=== PATIENT | male | born 1955 | race Caucasian/White ===

== ENCOUNTER 2016-11-18 10:50 | Emergency (ER) | payer OTHER ==
[2016-11-18 12:30] LABS: BASOPHIL 0.5 % (0-2); EOSINOPHIL 2.7 % (0-5); HCT 43.4 % (42.0-52.0); HGB 14.8 g/dl (13.2-18.0); LYMPHOCYTE 26.2 % (15-48); MCH 30.1 pg (25.0-31.0); MCHC 34.1 g/dL (32.0-36.0); MCV 88.4 fL (78.0-100.0); MONOCYTE 6.8 % (0-12); MPV 10.3 fL (6.0-9.5); NEUTROPHIL 63.8 % (41-80); PLT 278 K/uL (150-400); RBC 4.91 M/uL (4.70-6.00); WBC 6.6 K/uL (4.0-10.5)
[2016-11-18 13:44] LABS: CREATININE 1.2 mg/dL (0.7-1.2); POTASSIUM 4.7 mmol/L (3.5-5.1)
== END 2016-11-18 12:33 | disposition home or self-care (01) ==
LOC: FER 10:50
PROVIDERS: Nurse Practitioner Family
DX: M10.9 Gout, unspecified (principal); I10 Essential (primary) hypertension; Z98.890 Other specified postprocedural states; Z79.899 Other long term (current) drug therapy
CPT/HCPCS: 36415; 80048; 84550; 85025; 99283